=== PATIENT | male | born 1985 | race Caucasian/White ===

== ENCOUNTER 2024-05-15 12:49 | Inpatient (IN) | payer OTHER ==
[~2024-05-15] VITALS: Ht 175.3 cm; Wt 66.4 kg
[2024-05-15] MEDS ORDERED: TAMS0.4C94 PO (14:29)
[2024-05-15] MEDS ORDERED: SERT-162 PO (14:29)
[2024-05-15 14:52] LABS: BASOPHILS % (AUTO) 0.3 % (0.0-2.0); EOSINOPHILS % (AUTO) 0.5 % (1.0-6.0); HEMATOCRIT 49.1 % (41-53); HEMOGLOBIN 16.6 g/dL (13.5-17.5); LYMPHOCYTES # (AUTO) 0.7 K/uL (1.0-4.8); LYMPHOCYTES % (AUTO) 10.2 % (22.0-44.0); MEAN CORPUSCULAR HEMOGLOBIN 30.6 pg (26.0-34.0); MEAN CORPUSCULAR HGB CONC 33.9 G/dL (31.0-37.0); MEAN CORPUSCULAR VOLUME 90 fL (80-100); MONOCYTES # (AUTO) 0.3 K/uL (0.1-1.0); MONOCYTES % (AUTO) 4.7 % (2.0-9.0); NEUTROPHILS % (AUTO) 84.3 % (40.0-70.0); PLATELET COUNT (AUTO) 232 K/uL (150-450); RED BLOOD CELL COUNT(AUTO) 5.44 MIL/uL (4.50-5.90); RED CELL DISTRIBUTION WIDTH 13.4 % (11.5-14.5); WHITE BLOOD COUNT (AUTO) 7.1 K/uL (4.5-11.0)
[2024-05-15 15:03] LABS: ANION GAP 11 mmol/L (8-16); CALCIUM, TOTAL 9.3 mg/dL (8.8-10.5); CARBON DIOXIDE 26 mmol/L (22-29); CHLORIDE 101 mmol/L (98-107); CREATININE 1.13 mg/dL (0.60-1.30); GLOMERULAR FILTR. RATE CALC > 60 mL/min (>60); GLUCOSE,RANDOM 83 mg/dL (70-110); POTASSIUM 4.8 mmol/L (3.5-5.1); SODIUM SERUM 138 mmol/L (136-145); UREA NITROGEN, BLOOD 36 mg/dL (7-18)
[2024-05-15 15:08] LABS: ALCOHOL, BLOOD (SERUM) < 3 mg/dL (0-10)
[2024-05-15] MEDS ORDERED: BISACODYL 10 MG RECTAL RECTAL SUPPOSITORY PR PRN (19:30)
[2024-05-15] MEDS ORDERED: IPRATROPIUM BROMIDE 0.5 MG/2.5 ML NEB SOLUTION NEB PRN (19:30)
[2024-05-15] MEDS ORDERED: ONDANSETRON HCL 4 MG/2 ML VIAL IVP PRN (19:30)
[2024-05-15] MEDS ORDERED: ALBUTEROL SULFATE 2.5 MG/0.5 ML NEB SOLUTION NEB PRN (19:30)
[2024-05-15] MEDS ORDERED: ZOLPIDEM TARTRATE 5 MG TABLET PO PRN (19:30)
[2024-05-15] MEDS ORDERED: ACETAMINOPHEN 325 MG TABLET PO PRN (19:30)
[2024-05-15] MEDS: HEPARIN SODIUM,PORCINE 5,000 UNITS/ML VIAL SQ SCH (23:33)
[2024-05-15 23:48] LABS: ALCOHOL, URINE DRUG SCREEN NEGATIVE (NEGATIVE); AMPHET/METH SCREEN,URINE NEGATIVE (NEGATIVE); BARBITURATE SCREEN, URINE NEGATIVE (NEGATIVE); BENZODIAZEPINES SCREEN,URINE NEGATIVE (NEGATIVE); CANNABINOID SCREEN,URINE NEGATIVE (NEGATIVE); COCAINE SCREEN,URINE NEGATIVE (NEGATIVE); METHADONE SCREEN, URINE NEGATIVE (NEGATIVE); OPIATE SCREEN,URINE NEGATIVE (NEGATIVE); PHENCYCLIDINE SCREEN,URINE NEGATIVE (NEGATIVE)
[2024-05-16 02:40] VITALS: BP 117/76; PULSE 84; RESP 18; TEMP 97.6; O2SAT 99
[2024-05-16 07:42] VITALS: BP 117/76; PULSE 104; RESP 18; TEMP 97.5; O2SAT 99
[2024-05-16] MEDS: PANTOPRAZOLE SODIUM 40 MG DR TABLET PO SCH (08:41)
[2024-05-16] MEDS: TAMSULOSIN HCL 0.4 MG CAPSULE PO SCH (08:41)
[2024-05-16 09:31] VITALS: BP 132/79; PULSE 79; RESP 20; TEMP 97.6; O2SAT 100
[2024-05-16] MEDS: SERTRALINE HCL 100 MG TABLET PO SCH (11:56)
[2024-05-16 12:11] VITALS: BP 105/77; PULSE 106; RESP 19; TEMP 98; O2SAT 98
[2024-05-16 15:44] VITALS: BP 115/74; PULSE 85; RESP 19; TEMP 98.1; O2SAT 98
[2024-05-16 20:36] VITALS: BP 123/72; PULSE 85; RESP 20; TEMP 97.6; O2SAT 97
[2024-05-17 04:57] VITALS: BP 119/73; PULSE 60; RESP 18; TEMP 97.7; O2SAT 98
[2024-05-17 09:05] VITALS: BP 117/80; PULSE 63; RESP 18; TEMP 97.8; O2SAT 97
[2024-05-17 19:56] VITALS: BP 117/65; PULSE 79; RESP 17; TEMP 98.2; O2SAT 98
[2024-05-18] MEDS: MAGNESIUM HYDROXIDE SUSPENSION 30 ML UDCUP PO PRN (06:51)
[2024-05-18 07:59] VITALS: BP 123/72; PULSE 72; RESP 18; TEMP 98.2; O2SAT 98
[2024-05-18 19:33] VITALS: BP 118/75; PULSE 82; RESP 18; TEMP 98; O2SAT 96
== END 2024-05-18 21:21 | DRG 885 ==
LOC: EMS 12:53 → EDH 19:29 → 6N 05-16 02:30
PROVIDERS: ADMIT Hospitalist; ATTEND Hospitalist
DX: F33.2 Major depressive disorder, recurrent severe without psychotic features (principal); R45.851 Suicidal ideations; F41.9 Anxiety disorder, unspecified; Z91.148 Patient's other noncompliance with medication regimen for other reason; Z91.51 Personal history of suicidal behavior
CPT/HCPCS: 80048; 80307; 85025; 99285; G0378; G0480; J1644